=== PATIENT | female | born 1995 | race Caucasian/White ===

== ENCOUNTER 2018-03-29 15:21 | Emergency (ER) | payer SELFPAY ==
[~2018-03-29] VITALS: Ht 149.9 cm; Wt 58.0 kg
[~2018-03-29 15:21] MED LIST: BACTRIM DS1 TAB PO; BACTRIM SUSP OR; CEPHALEXIN500 M1 PO; DENIES CURRENT MEDS; NAPROSYN500 MG PO; PHENERGAN RE; PRILOSEC20 MG/CAP PO; ROBITUSSIN AC10 ML OR; ZOFRAN ODT4 MG OR; ZOFRAN ODT8 MG SL
[2018-03-29 15:52] LABS: HEMATOCRIT 44.8 % (37.0-47.0); IMMATURE GRANULOCYTES 0.4 % (0.0-1.0); MEAN CELL VOLUME 101.6 fL CALC (80.0-100.0); MEAN CORPUSCULAR HGB CONC 33.5 g/L CALC (32.0-36.0); NEUT# 10.93 thou/uL (2.00-7.15); RED BLOOD COUNT 4.41 mill/uL (4.20-5.60); RED CELL DISTRI WIDTH 12.7 % (11.5-15.5)
[2018-03-29 15:53] LABS: URINE BILIRUBIN - DIPSTICK NEGATIVE (NEGATIVE); URINE BLOOD DIPSTICK NEGATIVE (NEGATIVE); URINE COLOR YELLOW; URINE GLUCOSE - DIPSTICK NEGATIVE (NEGATIVE); URINE KETONE TRACE mg/dL (NEGATIVE); URINE LEUK ESTERASE NEGATIVE (NEGATIVE); URINE NITRITE - DIPSTICK NEGATIVE (Negative); URINE PROTEIN - DIPSTICK NEGATIVE (NEG-TRACE); URINE SPECIFIC GRAVITY >=1.030
[2018-03-29 16:05] LABS: URINE CLARITY CLEAR
[2018-03-29 16:14] LABS: ALBUMIN 4.9 g/dL (3.2-5.0); ALKALINE PHOSPHATASE 77 u/l (38-126); ANION GAP 21 (6-22 (CALC)); BUN 12 mg/dL (7-17); BUN/CREATININE RATIO 14 (12-20 (CALC)); CARBON DIOXIDE 24 mmol/l (22-30); CHLORIDE 104 mmol/l (95-108); CREATININE 0.8 mg/dL (0.5-1.0); GFR > 60 ML/MIN (>=60 (CALC)); GFR FOR AFR.AMER. > 60 ML/MIN (>=60 (CALC)); LIPASE 52 u/l (23-300); SGOT/AST 17 u/l (14-36); SGPT/ALT 34 u/l (9-52); SODIUM 145 mmol/l (137-146); TOTAL PROTEIN 8.4 g/dL (6.3-8.2)
[2018-03-29] MEDS ORDERED: ONDANSETRON4 MG PO (17:50)
[2018-03-29 17:52] VITALS: BP 127/78
== END 2018-03-29 17:58 | disposition home or self-care (01) | DRG 392 ==
LOC: ED 15:21
PROVIDERS: Family Medicine
DX: K52.9 Noninfective gastroenteritis and colitis, unspecified (principal); K76.0 Fatty (change of) liver, not elsewhere classified; R10.31 Right lower quadrant pain; R10.11 Right upper quadrant pain; R11.2 Nausea with vomiting, unspecified

== ENCOUNTER 2019-04-05 22:50 | Emergency (ER) | payer OTHER ==
[~2019-04-05] VITALS: Ht 149.9 cm; Wt 76.8 kg
[~2019-04-05 22:50] MED LIST changes: +ONDANSETRON4 MG PO
[2019-04-05 23:34] LABS: URINE BILIRUBIN - DIPSTICK NEGATIVE (NEGATIVE); URINE BLOOD DIPSTICK NEGATIVE (NEGATIVE); URINE COLOR YELLOW; URINE GLUCOSE - DIPSTICK NEGATIVE (NEGATIVE); URINE KETONE NEGATIVE (NEGATIVE); URINE LEUK ESTERASE NEGATIVE (NEGATIVE); URINE NITRITE - DIPSTICK NEGATIVE (Negative); URINE PROTEIN - DIPSTICK NEGATIVE (NEG-TRACE); URINE SPECIFIC GRAVITY <=1.005; URINE UROBILINOGEN - DIPSTICK 0.2 E.U./dL (0.2)
[2019-04-06 00:05] VITALS: BP 131/67
== END 2019-04-06 00:05 | disposition home or self-care (01) ==
LOC: ED 22:50
PROVIDERS: Family Medicine
DX: O26.893 Other specified pregnancy related conditions, third trimester (principal); M54.5 Low back pain; Z3A.32 32 weeks gestation of pregnancy

== ENCOUNTER 2019-09-07 11:00 | Emergency (ER) | payer OTHER ==
[~2019-09-07] VITALS: Ht 149.9 cm; Wt 71.0 kg
[2019-09-07 11:32] LABS: URINE BILIRUBIN - DIPSTICK NEGATIVE (NEGATIVE); URINE BLOOD DIPSTICK NEGATIVE (NEGATIVE); URINE COLOR YELLOW; URINE GLUCOSE - DIPSTICK NEGATIVE (NEGATIVE); URINE KETONE NEGATIVE (NEGATIVE); URINE LEUK ESTERASE NEGATIVE (NEGATIVE); URINE NITRITE - DIPSTICK NEGATIVE (Negative); URINE PROTEIN - DIPSTICK NEGATIVE (NEG-TRACE); URINE UROBILINOGEN - DIPSTICK 0.2 E.U./dL (0.2)
[2019-09-07 11:56] LABS: HEMATOCRIT 39.4 % (37.0-47.0); IMMATURE GRANULOCYTES 0.3 % (0.0-5.0); MEAN CELL VOLUME 95.9 fL CALC (80.0-100.0); MEAN CORPUSCULAR HGB 31.4 pG CALC (26.0-32.0); MEAN CORPUSCULAR HGB CONC 32.7 g/L CALC (32.0-36.0); NEUT# 4.64 thou/uL (2.00-7.15); RED BLOOD COUNT 4.11 mill/uL (4.20-5.60); RED CELL DISTRI WIDTH 13.6 % (11.5-15.5)
[2019-09-07 12:00] LABS: HEMOGLOBIN 12.9 g/dl (12.0-16.0)
[2019-09-07 12:08] LABS: ALBUMIN 4.2 g/dL (3.2-5.0); ALKALINE PHOSPHATASE 82 u/l (38-126); ANION GAP 14 (6-22 (CALC)); BILIRUBIN, TOTAL 0.5 mg/dL (0.0-1.4); BUN 12 mg/dL (7-17); BUN/CREATININE RATIO 20 (12-20 (CALC)); CARBON DIOXIDE 22 mmol/l (22-30); CHLORIDE 108 mmol/l (95-108); CREATININE 0.6 mg/dL (0.5-1.0); GFR > 60 ML/MIN (>=60 (CALC)); GFR FOR AFR.AMER. > 60 ML/MIN (>=60 (CALC)); POTASSIUM 4.1 mmol/l (3.5-5.1); SGOT/AST 33 u/l (14-36); SODIUM 140 mmol/l (137-146); TOTAL PROTEIN 7.3 g/dL (6.3-8.2)
[2019-09-07 13:38] VITALS: BP 121/49
== END 2019-09-07 13:45 | disposition home or self-care (01) ==
LOC: ED 11:00
PROVIDERS: Family Medicine
DX: R51 Headache (principal); R11.0 Nausea; H53.8 Other visual disturbances

== ENCOUNTER 2020-06-12 19:26 | Emergency (ER) | payer OTHER ==
[~2020-06-12] VITALS: Ht 149.9 cm; Wt 79.0 kg
[2020-06-12] MEDS ORDERED: CALNA PO (20:00)
[2020-06-12 20:08] LABS: IMMATURE GRANULOCYTES 0.7 % (0.0-5.0); MEAN CELL VOLUME 98.1 fL CALC (80.0-100.0); MEAN CORPUSCULAR HGB 32.8 pG CALC (26.0-32.0); MEAN CORPUSCULAR HGB CONC 33.4 g/dL CAL (32.0-36.0); NEUT# 7.87 thou/uL (2.00-7.15); RED BLOOD COUNT 3.23 mill/uL (4.20-5.60); RED CELL DISTRI WIDTH 12.8 % (11.5-15.5)
[2020-06-12 20:13] LABS: HEMATOCRIT 31.7 % (37.0-47.0); HEMOGLOBIN 10.6 g/dl (12.0-16.0)
[2020-06-12 20:14] LABS: URINE BILIRUBIN - DIPSTICK NEGATIVE (NEGATIVE); URINE BLOOD DIPSTICK NEGATIVE (NEGATIVE); URINE COLOR YELLOW; URINE GLUCOSE - DIPSTICK NEGATIVE (NEGATIVE); URINE KETONE NEGATIVE (NEGATIVE); URINE LEUK ESTERASE NEGATIVE (NEGATIVE); URINE NITRITE - DIPSTICK NEGATIVE (Negative); URINE PH 6.5 (4.5-8.0); URINE PROTEIN - DIPSTICK NEGATIVE (NEG-TRACE); URINE SPECIFIC GRAVITY <=1.005; URINE UROBILINOGEN - DIPSTICK 0.2 E.U./dL (0.2)
[2020-06-12 20:31] LABS: ALKALINE PHOSPHATASE 55 u/l (38-126); ANION GAP 6 (6-22 (CALC)); BILIRUBIN, TOTAL 0.3 mg/dL (0.0-1.4); BUN 2 mg/dL (7-17); BUN/CREATININE RATIO 7 (12-20 (CALC)); CARBON DIOXIDE 20 mmol/l (22-30); CHLORIDE 111 mmol/l (95-108); CREATININE 0.3 mg/dL (0.5-1.0); GFR > 60 ML/MIN (>=60 (CALC)); GFR FOR AFR.AMER. > 60 ML/MIN (>=60 (CALC)); LIPASE 37 u/l (23-300); POTASSIUM 3.3 mmol/l (3.5-5.1); SGOT/AST 12 u/l (14-36); SODIUM 133 mmol/l (137-146)
[2020-06-12 20:33] LABS: ALBUMIN 3.1 g/dL (3.2-5.0); TOTAL PROTEIN 5.7 g/dL (6.3-8.2)
[2020-06-12] MEDS ORDERED: ZOFRAN4 MG/TAB PO (20:46)
[2020-06-12 21:07] VITALS: BP 113/54
== END 2020-06-12 21:08 | disposition home or self-care (01) | DRG 833 ==
LOC: ED 19:26
DX: O21.9 Vomiting of pregnancy, unspecified (principal); O26.892 Other specified pregnancy related conditions, second trimester; R51 Headache; Z3A.00 Weeks of gestation of pregnancy not specified

== ENCOUNTER 2022-09-29 23:09 | Emergency (ER) | payer OTHER ==
[~2022-09-29] VITALS: Ht 149.9 cm; Wt 86.4 kg
[~2022-09-29 23:09] MED LIST changes: +CALNA PO; +ZOFRAN4 MG/TAB PO
[2022-09-30] MEDS ORDERED: VOLTAREN75 MG PO (01:18)
[2022-09-30] MEDS ORDERED: KEFLEX500 MG PO (01:18)
[2022-09-30] MEDS ORDERED: LORTAB5 PO (01:18)
[2022-09-30 01:50] VITALS: BP 120/83
== END 2022-09-30 01:50 | disposition home or self-care (01) | DRG 999 ==
LOC: ED 23:09
PROC: 0HQNXZZ Repair Left Foot Skin, External Approach (ICD-10-PCS; principal; 2022-09-29)
DX: S91.012A Laceration without foreign body, left ankle, initial encounter (principal); S42.295A Other nondisplaced fracture of upper end of left humerus, initial encounter for closed fracture; S80.811A Abrasion, right lower leg, initial encounter; S80.212A Abrasion, left knee, initial encounter; T14.8XXA Other injury of unspecified body region, initial encounter; V09.09XA Pedestrian injured in nontraffic accident involving other motor vehicles, initial encounter; Y93.89 Activity, other specified; Y92.009 Unspecified place in unspecified non-institutional (private) residence as the place of occurrence of the external cause

== ENCOUNTER 2022-10-04 20:31 | Observation (INO) | payer OTHER ==
[~2022-10-04] VITALS: Ht 149.9 cm; Wt 85.0 kg
[~2022-10-04 20:31] MED LIST changes: +KEFLEX500 MG PO; +LORTAB5 PO; +VOLTAREN75 MG PO
[2022-10-04 21:35] LABS: IMMATURE GRANULOCYTES 0.1 % (0.0-5.0); MEAN CELL VOLUME 99.5 fL CALC (80.0-100.0); MEAN CORPUSCULAR HGB 32.5 pG CALC (26.0-32.0); MEAN CORPUSCULAR HGB CONC 32.6 g/dL CAL (32.0-36.0); NEUT# 7.77 thou/uL (2.00-7.15); RED BLOOD COUNT 3.91 mill/uL (4.20-5.60); RED CELL DISTRI WIDTH 12.2 % (11.5-15.5)
[2022-10-04 21:36] LABS: HEMATOCRIT 38.9 % (37.0-47.0); HEMOGLOBIN 12.7 g/dl (12.0-16.0)
[2022-10-04 21:45] LABS: ALKALINE PHOSPHATASE 75 u/l (38-126); BILIRUBIN, TOTAL 0.4 mg/dL (0.0-1.4); BUN 8 mg/dL (7-17); BUN/CREATININE RATIO 12 (12-20 (CALC)); CARBON DIOXIDE 24 mmol/l (22-30); CHLORIDE 104 mmol/l (95-108); CREATININE 0.6 mg/dL (0.5-1.0); GFR FOR AFR.AMER. > 60 ML/MIN (>=60 (CALC)); GFR OTHER RACES > 60 ML/MIN (>=60 (CALC)); SODIUM 136 mmol/l (137-146)
[2022-10-04 21:47] LABS: ALBUMIN 4.5 g/dL (3.2-5.0); ANION GAP 13 (6-22 (CALC)); POTASSIUM 4.6 mmol/l (3.5-5.1); SGOT/AST 41 u/l (14-36); TOTAL PROTEIN 8.2 g/dL (6.3-8.2)
[2022-10-04 23:22] VITALS: BP 119/50
[2022-10-05 04:05] VITALS: BP 109/49
[2022-10-05 06:32] VITALS: BP 118/66
[2022-10-05 07:29] VITALS: BP 118/66
[2022-10-05 16:49] VITALS: BP 117/60
[2022-10-05 18:56] VITALS: BP 117/60
[2022-10-06 04:30] VITALS: BP 122/71
[2022-10-06 06:41] VITALS: BP 120/55
[2022-10-06 15:41] VITALS: BP 133/60
[2022-10-06 20:08] VITALS: BP 109/61
[2022-10-07 03:39] VITALS: BP 119/62
[2022-10-07 04:00] VITALS: BP 119/62
[2022-10-07 05:15] LABS: HEMATOCRIT 35.1 % (37.0-47.0); HEMOGLOBIN 11.5 g/dl (12.0-16.0); MEAN CELL VOLUME 99.2 fL CALC (80.0-100.0); MEAN CORPUSCULAR HGB 32.5 pG CALC (26.0-32.0); MEAN CORPUSCULAR HGB CONC 32.8 g/dL CAL (32.0-36.0); RED BLOOD COUNT 3.54 mill/uL (4.20-5.60); RED CELL DISTRI WIDTH 12.1 % (11.5-15.5)
[2022-10-07 05:44] LABS: ANION GAP 13 (6-22 (CALC)); BUN 9 mg/dL (7-17); BUN/CREATININE RATIO 12 (12-20 (CALC)); CARBON DIOXIDE 23 mmol/l (22-30); CHLORIDE 105 mmol/l (95-108); CREATININE 0.8 mg/dL (0.5-1.0); GFR FOR AFR.AMER. > 60 ML/MIN (>=60 (CALC)); GFR OTHER RACES > 60 ML/MIN (>=60 (CALC)); POTASSIUM 4.4 mmol/l (3.5-5.1); SODIUM 137 mmol/l (137-146)
[2022-10-07 07:19] VITALS: BP 116/60
[2022-10-07] MEDS ORDERED: LORTAB5 PO (10:14)
[2022-10-07] MEDS ORDERED: AMOX/K CLAV875 M1 PO (10:14)
== END 2022-10-07 11:55 | disposition home health service (06) | DRG 603 ==
LOC: ED 20:31 → ED-I 21:56 → ED 22:15 → MS2 22:16
PROVIDERS: Emergency Medicine; ADMIT Internal Medicine; ATTEND Internal Medicine
DX: L03.116 Cellulitis of left lower limb (principal); S91.012A Laceration without foreign body, left ankle, initial encounter; S91.312A Laceration without foreign body, left foot, initial encounter; B95.2 Enterococcus as the cause of diseases classified elsewhere; S42.202D Unspecified fracture of upper end of left humerus, subsequent encounter for fracture with routine healing; T14.8XXA Other injury of unspecified body region, initial encounter; V09.20XA Pedestrian injured in traffic accident involving unspecified motor vehicles, initial encounter
CPT/HCPCS: G0378; J1650